=== PATIENT | female | born 1960 | race African-American/Black ===

== ENCOUNTER → 2017-04-27 | Outpatient (CLI) | payer OTHER ==
--- NOTE | 2017-04-27 13:09 | RAD ---
DATE: 04/27/2017 EXAM: DIGITAL SCREEN BILAT W/CAD HISTORY: Screening COMPARISON: One year earlier This study was interpreted with the benefit of Computerized Aided Detection (CAD ). FINDINGS: Breast Density: . There has not been a significant change in the appearance of the breasts compared to the previous exam IMPRESSION: Benign finding BI-RADS CATEGORY: 2 BENIGN FINDING(S) RECOMMENDED FOLLOW-UP: 12M 12 MONTH FOLLOW-UP PQRS compliance statement: Patient information was entered into a reminder system with a target due date 04/27/2018 for the next mammogram. Mammography is a sensitive method for finding small breast cancers, but it does not detect them all and is not a substitute for careful clinical examination. A negative mammogram does not negate a clinically suspicious finding and should not result in delay in biopsying a clinically suspicious abnormality. "Our facility is accredited by the [employer] Mammography [employer]." JUDITHD
== END | disposition home or self-care (01) ==
LOC: MAMMO 08:52
PROVIDERS: ATTEND Obstetrics & Gynecology
DX: Z12.31 Encounter for screening mammogram for malignant neoplasm of breast (principal)
CPT/HCPCS: G0202; 77067

== ENCOUNTER → 2018-07-30 | Outpatient (CLI) | payer OTHER ==
--- NOTE | 2018-07-30 16:18 | RAD ---
DATE: 07/30/2018 EXAM: DIGITAL SCREEN BILAT W/CAD HISTORY: Astigmatic screening mammogram. COMPARISON: Prior mammograms from 04/27/2017, 04/21/2016 and 08/07/2014 This study was interpreted with the benefit of Computerized Aided Detection (CAD). Breast Density: HETERO The breast parenchyma is heterogenously dense, which could reduce sensitivity of mammography. Breast parenchyma level C. FINDINGS: Bilateral CC and MLO views of the breasts were performed. Right breast: There is a focal asymmetry in the retroareolar right breast at middle depth measuring approximate 4 mm, approximately 3-4 cm from the nipple. Further evaluation with spot compression CC and MLO views as well as possible ultrasound is recommended. Left breast: There are no suspicious microcalcifications, masses or areas of architectural distortion. Findings of left mammogram are stable from prior mammogram. IMPRESSION: 1. Incomplete right mammogram. Additional imaging is recommended as detailed above. 2. Negative left mammogram. BI-RADS CATEGORY: 0 INCOMPLETE: NEEDS ADDITIONAL IMAGING EVALUATION AND/OR PRIOR MAMMOGRAMS FOR COMPARISON. RECOMMENDED FOLLOW-UP: ADD ADDITIONAL IMAGING PQRS compliance statement: . Mammography is a sensitive method for finding small breast cancers, but it does not detect them all and is not a substitute for careful clinical examination. A negative mammogram does not negate a clinically suspicious finding and should not result in delay in biopsying a clinically suspicious abnormality. "Our facility is accredited by the [employer] Mammography [employer]."
== END | disposition home or self-care (01) ==
LOC: MAMMO 10:33
PROVIDERS: ATTEND Nurse Practitioner
DX: Z12.31 Encounter for screening mammogram for malignant neoplasm of breast (principal)
CPT/HCPCS: 77067

== ENCOUNTER → 2018-08-30 | Outpatient (CLI) | payer OTHER ==
--- NOTE | 2018-08-30 12:22 | RAD ---
DATE: 08/30/2018 EXAM: DIGITAL DIAGNOSTIC RT, BREAST RIGHT HISTORY: Suspicious screening study COMPARISON: 04/27/2017, 07/30/2018 This study was interpreted with the benefit of Computerized Aided Detection (CAD). Breast Density: HETERO The breast parenchyma is heterogenously dense, which could reduce sensitivity of mammography. Breast parenchyma level C. FINDINGS: Spot compression CC and MLO views of the right retroareolar region were obtained and correlated with the screening study. The fibroglandular tissues are quite heterogeneous. No discrete nodule is seen. Right breast ultrasound, 08/30/2018: A targeted ultrasound exam of the retroareolar region was performed. Heterogeneous fibroglandular shadows are present. No mass or abnormal fluid collection is seen. IMPRESSION: 1. Additional right diagnostic mammograms did not demonstrate a discrete breast mass. 2. A targeted ultrasound exam of the central right breast revealed no abnormality. 3. Routine yearly mammographic follow-up is suggested. BI-RADS CATEGORY: 2 BENIGN FINDING(S) RECOMMENDED FOLLOW-UP: 12M 12 MONTH FOLLOW-UP PQRS compliance statement: Patient information was entered into a reminder system with a target due date for the next mammogram. Mammography is a sensitive method for finding small breast cancers, but it does not detect them all and is not a substitute for careful clinical examination. A negative mammogram does not negate a clinically suspicious finding and should not result in delay in biopsying a clinically suspicious abnormality. "Our facility is accredited by the [employer] Mammography [employer]."
== END | disposition home or self-care (01) ==
LOC: MAMMO 10:22
PROVIDERS: ATTEND Nurse Practitioner
DX: R92.8 Other abnormal and inconclusive findings on diagnostic imaging of breast (principal)
CPT/HCPCS: 76641; 77065

== ENCOUNTER → 2020-09-08 | Outpatient (CLI) | payer OTHER ==
--- NOTE | 2020-09-09 09:04 | RAD ---
DATE: 09/08/2020 9:38 AM EXAM: DIGITAL SCREEN BILAT W/CAD HISTORY: Screening COMPARISON: 07/30/2018 Bilateral full field craniocaudal and mediolateral oblique images were obtained using digital technique. This study was interpreted with the benefit of Computerized Aided Detection (CAD). FINDINGS: Breast Density: HETERO The breast parenchyma Is heterogeneously dense, which could reduce sensitivity of mammography. Breast parenchyma level C No suspicious masses, microcalcifications or architectural distortion is present to suggest malignancy in either breast. The visualized axillae are unremarkable. IMPRESSION: No mammographic evidence of malignancy. BI-RADS CATEGORY: 1 NEGATIVE RECOMMENDED FOLLOW-UP: 12M 12 MONTH FOLLOW-UP Annual screening mammography is recommended, unless clinically indicated sooner based on symptoms or change in physical exam. PQRS compliance statement: Patient information was entered into a reminder system with a target due date for the next mammogram. Mammography is a sensitive method for finding small breast cancers, but it does not detect them all and is not a substitute for careful clinical examination. A negative mammogram does not negate a clinically suspicious finding and should not result in delay in biopsying a clinically suspicious abnormality. "Our facility is accredited by the [employer] Mammography [employer]."
== END ==
LOC: MAMMO 09:09
PROVIDERS: ATTEND Nurse Practitioner
DX: Z12.31 Encounter for screening mammogram for malignant neoplasm of breast (principal)
CPT/HCPCS: 77067

== ENCOUNTER → 2021-10-13 | Outpatient (CLI) | payer OTHER ==
--- NOTE | 2021-10-13 13:07 | RAD ---
INDICATION: 60 years of age asymptomatic female patient presents for screening mammography. TECHNIQUE: Bilateral full field craniocaudal and mediolateral oblique images were obtained using dig ital technique and also analyzed with computer-aided detection software. COMPARISON: Prior mammographic imaging dating back to 04/21/2016. BREAST COMPOSITION: Category C: The breast tissue is heterogeneously dense, which could obscure detec tion of small masses. FINDINGS: No suspicious masses, microcalcifications or architectural distortion is present to suggest malignanc y in either breast. The visualized axillae are unremarkable. IMPRESSION: No mammographic evidence of malignancy. RECOMMENDATION: Annual screening mammography is recommended, unless clinically indicated sooner based on symptoms or change in physical exam. BIRADS 1: NEGATIVE This study was interpreted with the benefit of Computerized Aided Detection (CAD). ?Your patient's mammogram demonstrates that she has dense breast tissue (breast density category C or D), which could hide abnormalities, and if she has other risk factors for breast cancer that have be en identified, she might benefit from supplemental screening tests that may be suggested by you as he r ordering physician. Dense breast tissue, in and of itself, is a relatively common condition. Theref ore, this information is not provided to cause undue concern, but rather to raise your awareness and to promote discussion with your patient regarding the presence of other risk factors, in addition to dense breast tissue. Your patient's mammography results will be sent to her. Patient information is entered into the reminder system with a target due date for the next screening mammogram. Mammography is the most sensitive method for finding small breast cancers, but it does not detect the m all and is not a substitute for careful clinical examination. A negative mammogram does not negate a clinically suspicious finding and should not result in delay in biopsying a clinically suspicious a bnormality. "Our facility is accredited by the [employer] Mammography [employer]." Electronically signed by: Michael Madison MD (10/13/2021 1:04 PM) [id number] BIRADS [id number]
== END ==
LOC: MAMMO 10:28
PROVIDERS: ATTEND Nurse Practitioner
DX: Z12.31 Encounter for screening mammogram for malignant neoplasm of breast (principal)
CPT/HCPCS: 77067